=== PATIENT | male | born 1970 | race Caucasian/White ===

== ENCOUNTER 2016-11-28 01:39 | Emergency (ER) | payer BC ==
[2016-11-28] MEDS ORDERED: Diltiazem 25 MG/5 ML SDV IVPUSH ONE ×2 (01:55→02:47)
[2016-11-28] MEDS ORDERED: Diltiazem 100 MG in Sodium Chloride 0.9% 100 ML IV SCH (02:00)
--- NOTE | 2016-11-28 02:40 | EDM.PDOC ---
[id number] Complaint: Cardiovascular Problem Stated Complaint: CHEST DISCOMFORT Time Seen by Provider: 11/28/16 02:05 - Related Data Allergies Allergy/AdvReac Type Severity Reaction Status Date / Time No Known Allergies Allergy Verified 11/28/16 01:59 Home Meds: Home Meds NK [No Known Home Meds] 11/28/16 [History] Course - Vital Signs Last Recorded V/S: Last Vital Signs Temp 37.2 C 11/28/16 02:25 Pulse 108 H 11/28/16 09:34 Resp 16 11/28/16 09:34 BP 117/76 11/28/16 09:34 Pulse Ox 95 11/28/16 09:34 - Orders/Labs/Meds Labs: Laboratory Tests 11/28/16 11/28/16 11/28/16 Range/Units 01:57 01:57 01:57 WBC 7.9 (4.5-11.0) K/uL RBC 5.11 (4.30-5.90) M/uL Hgb 15.6 H (12.0-15.0) g/dL Hct 45.3 (40.0-54.0) % MCV 89 (80-98) fL MCH 31 (27-31) pg MCHC 34 (32-36) % Plt Count 222 (150-400) K/uL Neut % (Auto) 36 (36-66) % Lymph % (Auto) 53 H (24-44) % Gibson % (Auto) 9 H (2-6) % Eos % (Auto) 2 (2-4) % Baso % (Auto) 0 (0-1) % D-Dimer, Quantitative (0.0-400.0) ng/mL Sodium 141 (140-148) mmol/L Potassium 3.5 L (3.6-5.2) mmol/L Chloride 103 (100-108) mmol/L Carbon Dioxide 26 (21-32) mmol/L Anion Gap 15.5 H (5.0-14.0) mmol/L BUN 25 H (7-18) mg/dL Creatinine 1.2 (0.8-1.3) mg/dL Est Cr Clr Drug Dosing 75.28 mL/min Estimated GFR (MDRD) > 60 (>60) Glucose 121 H (74-106) mg/dL Calcium 8.6 (8.5-10.1) mg/dL Total Bilirubin 0.6 (0.2-1.0) mg/dL AST 29 (15-37) U/L ALT 60 (12-78) U/L Alkaline Phosphatase 53 (46-116) U/L Troponin I < 0.017 (0.000-0.056) ng/mL Total Protein 7.7 (6.4-8.2) g/dL Albumin 4.1 (3.4-5.0) g/dL Globulin 3.6 H (2.3-3.5) g/dL Albumin/Globulin Ratio 1.1 L (1.2-2.2) TSH, Ultra Sensitive 2.206 (0.358-3.740) uIU/mL Urine Color Urine Appearance Urine pH (4.5-8.0) Ur Specific [place] (1.008-1.030) Urine Protein (NEGATIVE) mg/dL Urine Glucose (UA) (NEGATIVE) mg/dL Urine Ketones (NEGATIVE) mg/dL Urine Occult Blood (NEGATIVE) Urine Nitrite (NEGAITVE) Urine Bilirubin (NEGATIVE) Urine Urobilinogen (NORMAL) mg/dL Ur Leukocyte Esterase (NEGATIVE) Urine RBC (0-5) Urine WBC (0-5) Ur Epithelial Cells Amorphous Sediment Urine Bacteria Urine Mucus 11/28/16 11/28/16 Range/Units 02:21 07:04 WBC (4.5-11.0) K/uL RBC (4.30-5.90) M/uL Hgb (12.0-15.0) g/dL Hct (40.0-54.0) % MCV (80-98) fL MCH (27-31) pg MCHC (32-36) % Plt Count (150-400) K/uL Neut % (Auto) (36-66) % Lymph % (Auto) (24-44) % Gibson % (Auto) (2-6) % Eos % (Auto) (2-4) % Baso % (Auto) (0-1) % D-Dimer, Quantitative < 100 (0.0-400.0) ng/mL Sodium (140-148) mmol/L Potassium (3.6-5.2) mmol/L Chloride (100-108) mmol/L Carbon Dioxide (21-32) mmol/L Anion Gap (5.0-14.0) mmol/L BUN (7-18) mg/dL Creatinine (0.8-1.3) mg/dL Est Cr Clr Drug Dosing mL/min Estimated GFR (MDRD) (>60) Glucose (74-106) mg/dL Calcium (8.5-10.1) mg/dL Total Bilirubin (0.2-1.0) mg/dL AST (15-37) U/L ALT (12-78) U/L Alkaline Phosphatase (46-116) U/L Troponin I (0.000-0.056) ng/mL Total Protein (6.4-8.2) g/dL Albumin (3.4-5.0) g/dL Globulin (2.3-3.5) g/dL Albumin/Globulin Ratio (1.2-2.2) TSH, Ultra Sensitive (0.358-3.740) uIU/mL Urine Color Yellow Urine Appearance Clear Urine pH 6.0 (4.5-8.0) Ur Specific [place] 1.015 (1.008-1.030) Urine Protein Negative (NEGATIVE) mg/dL Urine Glucose (UA) Normal (NEGATIVE) mg/dL Urine Ketones Negative (NEGATIVE) mg/dL Urine Occult Blood Negative (NEGATIVE) Urine Nitrite Negative (NEGAITVE) Urine Bilirubin Negative (NEGATIVE) Urine Urobilinogen Normal (NORMAL) mg/dL Ur Leukocyte Esterase Negative (NEGATIVE) Urine RBC Not seen (0-5) Urine WBC Not seen (0-5) Ur Epithelial Cells Not seen Amorphous Sediment Not seen Urine Bacteria Not seen Urine Mucus Not seen Meds: Medications Discontinued Medications Generic Name Dose Route Start Last Admin Trade Name Freq PRN Reason Stop Dose Admin Diltiazem HCl 10 mg 11/28/16 01:55 11/28/16 02:03 Diltiazem IVPUSH 11/28/16 01:56 10 mg ONETIME ONE Administration Diltiazem HCl 5 mg 11/28/16 02:47 11/28/16 02:55 Diltiazem IVPUSH 11/28/16 02:48 5 mg ONETIME ONE Administration Diltiazem HCl 100 mg/ Sodium 100 mls @ 5 mls/hr 11/28/16 02:00 11/28/16 09:04 Chloride IV 0 mg/hr TITRATE BRENNEN 0 mls/hr Protocol Titration 5 MG/HR Sodium Chloride 1,000 mls @ 400 mls/hr 11/28/16 02:45 11/28/16 08:04 Normal Saline IV Infused ASDIRECTED BRENNEN Infusion Sodium Chloride 1,000 mls @ 50 mls/hr 11/28/16 08:15 11/28/16 08:06 Normal Saline IV 50 mls/hr ASDIRECTED BRENNEN Administration Departure - Departure Time of Disposition: 10:08 Disposition: Home, Self-Care 01 Clinical Impression: Atrial fibrillation Qualifiers: Atrial fibrillation type: paroxysmal Qualified Code(s): I48.0 - Paroxysmal atrial fibrillation Instructions: Atrial Fibrillation, [id number] Referrals: PCP,None [Primary Care Provider] - Forms: ED Department Discharge Additional Instructions: Please followup with your primary care provider in 3-5 days if not better, please call return to the emergency department with worsening of symptoms. - Assessment/Plan Plan: Assessment Acuity = acute Site and laterality = paroxysmal atrial fibrillation with conversion to sinus rhythm Etiology= unclear Manifestations = none Location of injury = home Lab values = CBC, CMP, thyroid, urinalysis unremarkable Plan He had conversion to sinus rhythm with Cardizem, no identifiable cause for atrial fibrillation his Chads score is 0 recommend followup with primary care for further evaluation Patient was in agreement with the plan all questions were answered, they were instructed to return to the emergency department or call for worsening symptoms. This note was dictated using [employer] voice recognition software please call with any questions. <CorinaEsmer - Last Filed: 12/01/16 07:49> ED HPI GENERAL MEDICAL PROBLEM - General Source of Information: Reports: Patient, Family History Limitations: Reports: No Limitations - History of Present Illness INITIAL COMMENTS - FREE TEXT/NARRATIVE: pt woke up feeling like his heart is rapid and he felt like it was irregular. Onset: Sudden Duration: Hour(s): Location: Reports: Chest Associated Symptoms: Reports: Shortness of Breath Past Medical History - Past Surgical History HEENT Surgical History: Reports: LASIK, Oral Surgery GI Surgical History: Reports: Appendectomy Social & Family History - Tobacco Use Smoking Status *Q: Never Smoker - Caffeine Use Caffeine Use: Reports: Coffee - Recreational Drug Use Recreational Drug Use: No ED ROS GENERAL - Review of Systems Review Of Systems: See Below Constitutional: Reports: No Symptoms HEENT: Reports: No Symptoms Respiratory: Reports: No Symptoms Cardiovascular: Reports: No Symptoms Endocrine: Reports: No Symptoms GI/Abdominal: Reports: No Symptoms : Reports: No Symptoms ED EXAM, GENERAL - Physical Exam Exam: See Below Free Text/Narrative:: pt arrived with a rapid irregular heart rhythm of sudden onset. Exam Limited By: No Limitations General Appearance: Alert, Mild Distress Ears: Normal External Exam Nose: Normal Inspection Throat/Mouth: Normal Inspection Head: Atraumatic Neck: Normal Inspection Respiratory/Chest: No Respiratory Distress Cardiovascular: Tachycardia, Irregularly Irregular GI/Abdominal: Soft (Male) Exam: Normal Inspection Rectal (Males) Exam: Deferred Extremities: Normal Inspection Neurological: Alert, Oriented, Normal Cognition Psychiatric: Normal Affect Course - Re-Assessments/Exams Free Text/Narrative Re-Assessment/Exam: 11/28/16 02:39 ekg shows the pt in atrial fib at 130-140. He has no chest pain. 11/28/16 02:45 lab work looked good. his tsh was normal. chest xray was clear. 11/28/16 06:39 pt has had a cardizem drip running all nite and his rate has gone down to 70 but he did not convert. 11/28/16 06:40 Departure - Departure Condition: fair
[2016-11-28] MEDS ORDERED: Sodium Chloride 0.9% 1,000 ML IV SCH ×2 (02:45→08:15)
[2016-11-28 09:49] VITALS: BP 117/76
--- NOTE | 2016-11-30 08:51 | CR ---
Chest 1V Frontal HISTORY: rapid heart rhythm COMPARISON: None FINDINGS: Portable chest, 0153 hours. Lungs appear clear and normally aerated. Cardiomediastinal silhouette is within normal limits. No va scular redistribution or pleural fluid can be seen. Bony structures and soft tissues are unremarkabl e. IMPRESSION: No acute chest abnormality identified.
== END 2016-11-28 10:24 | disposition home or self-care (01) ==
LOC: JP.ED 01:39
DX: I48.0 Paroxysmal atrial fibrillation (principal); Z90.49 Acquired absence of other specified parts of digestive tract; Z98.890 Other specified postprocedural states
CPT/HCPCS: 36415; 71010; 80053; 81001; 84443; 84484; 85025; 85379; 93005; 96361; 96374; 96375; 99285; J7030; J7040; J3490

== ENCOUNTER 2025-02-14 10:13 | Emergency (ER) | payer BC ==
[2025-02-14] MEDS: Ibuprofen Susp 100 MG/5 ML 5 ML UD Cup PO ONE (10:43)
[2025-02-14 12:13] VITALS: BP 137/71; PULSE 40
== END 2025-02-14 12:27 | disposition home or self-care (01) ==
LOC: JP.ED 10:13
DX: T63.441A Toxic effect of venom of bees, accidental (unintentional), initial encounter (principal); Z79.899 Other long term (current) drug therapy; Z90.49 Acquired absence of other specified parts of digestive tract
CPT/HCPCS: 99281; A9270